=== PATIENT | female | born 1980 | race Caucasian/White ===

== ENCOUNTER 2016-12-09 18:24 | Emergency (ER) | payer MEDICAID ==
[~2016-12-09] VITALS: Ht 162.6 cm; Wt 72.5 kg
[2016-12-09 18:50] VITALS: Ht 162.6 cm; Wt 72.5 kg
[2016-12-09] MEDS ORDERED: DIPHTH/TET/ACEL PERTUSS (ADULT) 0.5 ML VIAL IM* ONE (21:00)
--- NOTE | 2016-12-09 21:54 | ERD ---
ER Documentation Chief Complaint Date/Time DATE: 12/09/16 TIME: 21:46 Chief Complaint left index finger laceration HPI This is a 36-year-old female presents to the ER with a laceration to her left index finger. Patient is cutting vegetables with a knife when she accidentally cut her finger. Patient denies any numbness or tingling to her finger. She does not have any problems moving her finger. Patient does not have a current tetanus shot. Bleeding was controlled before arriving to the ER. Patient is complaining of pain to the tip of her finger where she cut herself. Pain is nonradiating. She has not tried anything for the pain pain is throbbing in quality. ROS 12 point review of systems was done, all negative except per HPI. Allergies Allergies: Coded Allergies: No Known Allergy (Unverified , 12/09/16) PMhx/Soc History of Surgery: No Anesthesia Reaction: No Hx Neurological Disorder: No Hx Respiratory Disorders: No Hx Cardiac Disorders: No Hx Psychiatric Problems: No Hx Miscellaneous Medical Probl: No Hx Alcohol Use: No Hx Substance Use: No Hx Tobacco Use: No Physical Exam Vitals Vital Signs Date Time Temp Pulse Resp B/P Pulse Ox O2 Delivery O2 Flow Rate FiO2 12/09/16 18:50 98.2 63 20 129/66 99 Physical Exam GENERAL: The patient is well developed and appropriate for usual state of health , in no apparent distress. HEENT: Atraumatic. CHEST: Clear to auscultation bilaterally. There are no rales, wheezes or rhonchi. HEART: Regular rate and rhythm. No murmurs, clicks, rubs or gallops. ABDOMEN: Soft, nontender and nondistended. Good bowel sounds. No rebound or guarding. No gross peritonitis. No gross organomegaly or masses. No Fermin sign or McBurney point tenderness. BACK: No midline or flank tenderness. EXTREMITIES: left index finger: patient has a small 1cm curved very superficial laceration. DTS and DTP are intact. normal ROM of all joints. NEURO: Alert and oriented. Results 24 hrs Current Medications Medications (Trade) Dose Ordered Sig/Nasir Route PRN Reason Start Time Stop Time Status Last Admin Dose Admin Diphtheria/ Tetanus/Acell Pertussis (Adacel) 0.5 ml ONCE ONCE IM* 12/09/16 21:00 12/09/16 21:02 DC 12/09/16 21:29 Procedures/MDM This is a 36-year-old female that presents to the ER with a laceration. Laceration is very superficial and patient has full ROM and is n/v intact. Area was irrigated with copious amounts of normal saline and explored, there was no fb, or tendon injury. Area was dermabonded. Patient was given tdap shot. Patient is to follow-up with her primary care doctor within 1-2 days or return to ER sooner if symptoms worsen. Medical decision making was shared with the patient she understands and agrees with plan. Departure Diagnosis: Primary Impression: Laceration Condition: Stable Patient Instructions: Laceration, All Additional Instructions: Llame al doctor MAANA y max justin JAN PARA DENTRO DE 1-2 IQBAL.Dgale a la secretaria que nosotros le instruimos hacer esta jan.Avise o llame si belcher condicin se empeora antes de la jan. Regresa aqui si peor o no mejor. PANKAJ GRAY Dec 09, 2016 21:54
== END 2016-12-09 21:51 | disposition home or self-care (01) ==
LOC: FTE 18:24
DX: S61.211A Laceration without foreign body of left index finger without damage to nail, initial encounter (principal); W26.0XXA Contact with knife, initial encounter; Y92.9 Unspecified place or not applicable; Z23 Encounter for immunization
CPT/HCPCS: 12001; 90471; 90715; Z7502